=== PATIENT | female | born 1990 | race Caucasian/White ===

== ENCOUNTER 2024-07-26 18:30 | Emergency (ER) | payer MEDICAID ==
[~2024-07-26] VITALS: Ht 167.6 cm; Wt 119.5 kg
[~2024-07-26 18:30] MED LIST: CYCL-1 PO; DIPH-423 PO; HYDR1TAB PO; HYDR28.457 TP; IBUP-1984 PO; IBUP-812 PO; NO HOME MEDS; ONDA-243 PO; ONDA8TAB6 PO; PRED20TA PO; PRED50TA PO; PSEU-225 PO
[2024-07-26 18:52] VITALS: BP 110/65; PULSE 84; RESP 18; TEMP 99; O2SAT 100
[2024-07-26] MEDS: ondansetron 4mg rapidly disintigrating tab PO ONE (20:11)
[2024-07-26] MEDS ORDERED: ONDA-243 PO (21:43)
== END 2024-07-26 21:56 | disposition home or self-care (01) ==
LOC: ER 18:30
DX: A08.4 Viral intestinal infection, unspecified (principal); F12.90 Cannabis use, unspecified, uncomplicated; Z88.0 Allergy status to penicillin
CPT/HCPCS: 87502; 87503; 99283

== ENCOUNTER 2024-11-29 18:19 | Emergency (ER) | payer MEDICAID ==
[~2024-11-29] VITALS: Ht 167.6 cm; Wt 90.5 kg
[2024-11-29 18:22] VITALS: BP 136/65; PULSE 100; RESP 15; O2SAT 97
--- NOTE | 2024-11-29 18:45 | Physician Documentation ---
History of Present Illness ~ Chief Complaint: Sore Throat Stated Complaint: SORE THROAT/EAR HURTS/MIGRAINE Time Seen by MD: 18:34 Primary Medical Doctor: Nirmala contreras HPI 34-year-old female patient presents to the ED with a complaint of left ear pain and a sore throat for the last two three days with increasing severity. States he does have a history of getting strep. Denies any fever denies any cough as well. Reports general malaise Medication Reconciliation Allergies: Coded Allergies: Penicillins (Verified Allergy, Unknown, 11/29/24) >5 years, hives, unknown treatment Scheduled Acetic Acid (Acetic Acid), 4 DROP LEFT EAR Q12H Azithromycin (Azithromycin), 1 TAB PO UD Hydrocodone/Acetaminophen (Vicodin 5-500 Tablet), 1 TAB PO Q4H Hydrocortisone Cream* (Hytone Cream*), 1 APPLIC TP BID Ibuprofen (Motrin), 400 MG PO TID Ibuprofen* (Motrin*), 800 MG PO Q8H ONDANSETRON ODT 4mg tablet (Ondansetron Odt), 4 MG PO BID Ondansetron Hcl (Zofran), 8 MG PO Q6H Ondansetron Hcl (Zofran), 8 MG PO Q6H Prednisone (Prednisone), 1 TABLET PO DAILY Prednisone* (Prednisone*), 40 MG PO DAILY Pseudoephedrine Hcl (Sudafed), 30 MG PO Q6H Scheduled PRN Cyclobenzaprine* (Cyclobenzaprine*), 1 TABLET PO Q8H PRN for muscle spasms Cyclobenzaprine* (Cyclobenzaprine*), 1 TABLET PO Q8H PRN for muscle spasms Diphenhydramine Hcl (Benadryl), 25 MG PO TID PRN for itching ONDANSETRON ODT 4mg tablet (Ondansetron Odt), 1 TABLET PO Q6H PRN for nausea/vomiting Miscellaneous Medications Home Med List (No Home Medications), (Reported) Past Medical History Past Medical History: Headache Past Surgical History: other Other Past Surgical History: D&Cx2 Alcohol Use: None Drug Use: marijuana Lives with: Mother Lives In: Home Occupation: employed Review of Systems All Other Systems at this time: Reviewed and Negative ROS As stated above in the HPI, otherwise all systems are reviewed and negative. Physical Exam Vital Signs: Temperature: 96.7, Source: Temporal, Heart Rate: 100, Respiratory Rate: 15, BP: 136/65, Pulse Oximetry: 97, Weight: 90.450 Physical Exam General: Alert, no apparent distress. HEENT: PERRL, EOMI, no injection, moist mucous membranes. Left tympanic membrane is reddened in the external auditory canal is erythematous Neck: Full range of motion. No drainage tympanic membrane is intact Respiratory: Lungs clear, no respiratory distress. Cardiovascular: Regular rate and rhythm, no murmurs. Gastrointestinal: Soft, nontender, nondistended. Bowels sounds present. Psychiatric: Normal mood and affect. Skin: Normal color, warm and dry. No edema, no ecchymosis. Progress Results/Orders Results/Orders Completed Orders - LEWIS MABRY [employer] Strep A Rapid (11/29/24 18:34) Azithromycin Tablet (Zithromax Tablet) (11/29/24 18:50) Acet Acid/Alumin Acet Otic (Acetic Acid (11/29/24 18:50) Medications Received in ER Medications (Trade) Dose Ordered Sig/Ghada Route PRN Reason Start Time Stop Time Status Last Admin Dose Admin (Zithromax tablet) 500 mg ONCE ONCE PO 11/29/24 18:50 11/29/24 18:51 DC 11/29/24 19:02 500 MG (acetic acid 2% otic drops 15ml) 5 drop NOW ONCE EACH EAR 11/29/24 18:50 11/29/24 18:51 DC 11/29/24 19:02 5 DROP Vital Signs 11/29/24 11/29/24 18:22 18:48 Temp 96.7 96.7 Pulse 100 Resp 15 B/P (MAP) 136/65 Pulse Ox 97 Laboratory Tests Test 11/29/24 18:38 Group A Streptococcus Rapid Positive H Medical Decision Making Findings I empirically tested the patient for strep. Regardless I can confirm she has a otitis media and otitis externa via my examination of the left ear. Going to use amoxicillin which would treat strep as well. Patient agrees with this plan and understands that if she test positive for that we will give her a call to advise her of her results. Departure Disposition: HOME / SELF CARE / HOMELESS Impression: Primary Impression: Swelling of tonsil Additional Impression: Otitis media Discharge Instructions: Otitis Media, Adult, Otitis Media, Adult, [id number], Strep Throat, Adult Additional Instructions: Take medication as prescribed in if your symptoms do not resolve after your prescriptions finish please return to the ED for further evaluate Referrals: NO PRIMARY CARE PROVIDER (PCP) Prescriptions Azithromycin (Azithromycin) 250 Mg Tablet 1 TAB PO UD for 5 Days, #6 TAB 2 the first day followed by 1 for days 2-5 Prov: LEWIS MABRY NP 11/29/24 Acetic Acid (Acetic Acid) 2 % Solution 4 DROP LEFT EAR Q12H for 7 Days, #15 ML 0 Refills Prov: LEWIS MABRY NP 11/29/24 Signature Scribe Signature: y Attestation: The note accurately reflects work and decisions made by me.Lewis Hilario NP 11/29/24 20:26 LEWIS MABRY NP Nov 29, 2024 18:45
[2024-11-29] MEDS ORDERED: ACET15SO14 LEFT EAR (18:47)
[2024-11-29] MEDS ORDERED: AMOX500C2 PO (18:47)
[2024-11-29 18:48] VITALS: TEMP 96.7
[2024-11-29] MEDS ORDERED: AZIT-21 PO (18:51)
[2024-11-29 19:01] LABS: STREP A SCREEN POSITIVE (Neg)
[2024-11-29] MEDS: azithromycin 250mg tablet PO ONE (19:02)
[2024-11-29] MEDS: ACETIC ACID 2% EACH EAR ONE (19:02)
== END 2024-11-29 19:05 | disposition home or self-care (01) ==
LOC: ER 18:20
DX: H66.92 Otitis media, unspecified, left ear (principal); R22.1 Localized swelling, mass and lump, neck; F12.90 Cannabis use, unspecified, uncomplicated; Z88.0 Allergy status to penicillin; Z79.899 Other long term (current) drug therapy; Z79.1 Long term (current) use of non-steroidal anti-inflammatories (NSAID)
CPT/HCPCS: 87880; 99283

== ENCOUNTER 2025-07-12 20:28 | Emergency (ER) | payer MEDICAID ==
[~2025-07-12] VITALS: Ht 167.6 cm; Wt 92.2 kg
[~2025-07-12 20:28] MED LIST changes: +ACET15SO14 LEFT EAR
[2025-07-12 20:35] VITALS: BP 111/57; PULSE 70; RESP 16; O2SAT 99
[2025-07-12 21:21] VITALS: TEMP 97.3
--- NOTE | 2025-07-12 21:35 | Physician Documentation ---
History of Present Illness ~ Chief Complaint: Vaginal pain Stated Complaint: VAGINAL PAIN Time Seen by MD: 20:58 Primary Medical Doctor: Nirmala contreras [facility] Patient is seen today with complaints of white cottage cheeselike vaginal discharge and severe vaginal pruritus for the last few days. Patient states he has not had vaginal intercourse for few years and had does have a new sexual partner. Patient denies any recent antibiotic use. She denies any abdominal pain or fever or chills in his no other concern or complaint at this time. Medication Reconciliation Allergies: Coded Allergies: Penicillins (Verified Allergy, Unknown, 11/29/24) >5 years, hives, unknown treatment Scheduled Acetic Acid (Acetic Acid), 4 DROP LEFT EAR Q12H Hydrocodone/Acetaminophen (Vicodin 5-500 Tablet), 1 TAB PO Q4H Hydrocortisone Cream* (Hytone Cream*), 1 APPLIC TP BID Ibuprofen (Motrin), 400 MG PO TID Ibuprofen* (Motrin*), 800 MG PO Q8H ONDANSETRON ODT 4mg tablet (Ondansetron Odt), 4 MG PO BID Ondansetron Hcl (Zofran), 8 MG PO Q6H Ondansetron Hcl (Zofran), 8 MG PO Q6H Prednisone (Prednisone), 1 TABLET PO DAILY Prednisone* (Prednisone*), 40 MG PO DAILY Pseudoephedrine Hcl (Sudafed), 30 MG PO Q6H Scheduled PRN Cyclobenzaprine* (Cyclobenzaprine*), 1 TABLET PO Q8H PRN for muscle spasms Cyclobenzaprine* (Cyclobenzaprine*), 1 TABLET PO Q8H PRN for muscle spasms Diphenhydramine Hcl (Benadryl), 25 MG PO TID PRN for itching ONDANSETRON ODT 4mg tablet (Ondansetron Odt), 1 TABLET PO Q6H PRN for nausea/vomiting Miscellaneous Medications Home Med List (No Home Medications), (Reported) Past Medical History Past Medical History: Headache Past Surgical History: other Other Past Surgical History: D&Cx2 Alcohol Use: None Drug Use: marijuana Lives with: Mother Lives In: Home Occupation: employed Review of Systems Constitutional: Denies: chills, fever, weakness Eyes: Denies: pain, blurred vision ENT: Denies: ear pain, nose pain, throat pain, mouth pain Respiratory: Denies: cough, shortness of breath Cardiovascular: Denies: chest pain, palpitations Gastrointestinal: Denies: abdominal pain, nausea, vomiting Genitourinary: Denies: burning, dysuria Female Genitalia: Denies: vaginal discharge, pelvic pain Neurological: Denies: headache, dizziness Musculoskeletal: Denies: pain, swelling Integumentary: Denies: rash, lesions Allergic/Immunologic: Denies: hives, itching Hematologic/Lymphatic: Denies: no symptoms reported Psychiatric: Denies: depression, anxiety Physical Exam Vital Signs: Temperature: 97.3, Source: Temporal, Heart Rate: 70, Respiratory Rate: 16, BP: 111/57, Pulse Oximetry: 99, Weight: 92.200 Physical Exam General: Awake and Alert, no acute distress. HEENT: Conjunctiva pink, Sclera clear, Mucus Membranes moist. Neck: Supple without masses and tenderness. Resp: Unlabored. Lungs clear to auscultation bilaterally. Heart: Regular Rate and rhythm, normal S1 and S2 without murmur, rub or gallop. Abdomen: Soft and non tender no organomegaly Genitourinary: Patient declined exam at this time. Extremities: No cyanosis,clubbing or edema. Skin: Warm and Dry. Progress Results/Orders Results/Orders Completed Orders - JULIETTE HERNANDEZ PAC Fluconazole Tablet (Diflucan Tablet) (07/12/25 21:13) Vital Signs 07/12/25 07/12/25 20:35 21:21 Temp 97.3 97.3 Pulse 70 Resp 16 B/P (MAP) 111/57 Pulse Ox 99 Medical Decision Making Additional information obtaine: N/A Findings Patient is seen today with complaints of white cottage cheeselike vaginal discharge and severe vaginal pruritus for the last few days. Patient states he has not had vaginal intercourse for few years and had does have a new sexual partner. Patient denies any recent antibiotic use. She denies any abdominal pain or fever or chills in his no other concern or complaint at this time. Patient was given dose of Diflucan 150 mg one tab by mouth in the ED along with prescription for another tablet to be taken in 72 hours if no better. Patient will follow up with primary care in 3-5 days if no better as needed sooner or return to ED with any worsening, concerning or changing symptoms. Urinary Diff Dx:Considerations: Unlikely: AAA, , Aortic dissection, Appendicitis, Bowel obstruction, Cholelithiasis, Choleangitis, DJD, Ectopic , Hepatitis, HNP, Impaction, Intrauterine , Musculoskeletal pain, Ovarian torsion, Pancreatitis, PID, Post-Op complication, Pyelonephritis, Renal failure, Strain, Urinary Obstruction, Urolithiasis, Urinary retention, UTI, Vaginitis, Other Genital Diff Dx:Considerations: Include: Vaginitis(osis)-Bacterial, Vaginitis(osis)-Candidal, Vaginitis(osis)-Herpes, Vaginitis(osis)-Trich. Departure Disposition: HOME / SELF CARE / HOMELESS Impression: Primary Impression: Vulvovaginal candidiasis Condition: Stable Discharge Instructions: Vaginitis Additional Instructions: Patient was given dose of Diflucan 150 mg one tab by mouth in the ED along with prescription for another tablet to be taken in 72 hours if no better. Patient will follow up with primary care in 3-5 days if no better as needed sooner or return to ED with any worsening, concerning or changing symptoms. If patient's symptoms are unresolved in the next couple of days she will follow up with primary care [facility] Referrals: NO PRIMARY CARE PROVIDER (PCP) Signature Scribe Signature: No scribe Attestation: No scribe JULIETTE HERNANDEZ PAC Jul 12, 2025 21:35
== END 2025-07-12 22:05 | disposition home or self-care (01) ==
LOC: ER 20:29
DX: B37.31 Acute candidiasis of vulva and vagina (principal); Z88.0 Allergy status to penicillin; Z88.8 Allergy status to other drugs, medicaments and biological substances
CPT/HCPCS: 99283